=== PATIENT | male | born 1965 | race Caucasian/White ===

== ENCOUNTER → 2016-08-04 | Outpatient (CLI) | payer OTHER, MEDICAID | LOC: BHFA 14:45 | PROVIDERS: ATTEND Internal Medicine Cardiovascular Disease | DX: I25.10 Atherosclerotic heart disease of native coronary artery without angina pectoris (principal); I10 Essential (primary) hypertension; E78.00 Pure hypercholesterolemia, unspecified ==

== ENCOUNTER → 2017-02-15 | Outpatient (CLI) | payer OTHER, MEDICAID | LOC: BHFA 10:45 | PROVIDERS: ATTEND Internal Medicine Cardiovascular Disease | DX: R07.9 Chest pain, unspecified (principal); R00.2 Palpitations; I25.10 Atherosclerotic heart disease of native coronary artery without angina pectoris; I10 Essential (primary) hypertension; E78.00 Pure hypercholesterolemia, unspecified; R00.0 Tachycardia, unspecified ==

== ENCOUNTER → 2017-02-20 | Outpatient (CLI) | payer OTHER, MEDICAID | LOC: BHFA 14:00 | PROVIDERS: ATTEND Internal Medicine Cardiovascular Disease | DX: R00.2 Palpitations (principal) ==

== ENCOUNTER → 2017-03-14 | Outpatient (CLI) | payer OTHER, MEDICAID ==
[~2017-03-14] MED LIST: REGADENOSON 0.4 MG/5 ML SYR IVP ONE
--- NOTE | 2017-03-14 13:03 | CPR ---
[f rep st] NONINVASIVE CARDIAC PROCEDURE REPORT PROCEDURE PERFORMED: Nuclear treadmill stress test. REASON FOR TEST: Palpitations. FINDINGS: Resting EKG shows a regular sinus rhythm. Resting heart rate 76, resting blood pressure 1 28/86, oxygen saturation 94%. EXERCISE PORTION: He was exercised according to the Buster protocol for a total of 7 minutes and 30 s econds. He reached maximal predicted heart rate of 173, his blood pressure. 164/78, he had no chest pain. RECOVERY: He spontaneously recovered, noting occasional PVCs during the recovery period. Resting he art rate 97, resting recovery blood pressure 146/82. He remained asymptomatic, with the exception of feeling palpitations when he had the PVCs. At this time, he is stable for nuclear imaging. This is a [facility] outpatient stress test. /[id number]/MODL
== END ==
LOC: FIMAGING 09:17
PROVIDERS: ATTEND Physician Assistant Medical
DX: R00.2 Palpitations (principal); R07.9 Chest pain, unspecified
CPT/HCPCS: 78452; 93017; A9500; J2785

== ENCOUNTER → 2017-04-03 | Outpatient (CLI) | payer OTHER, MEDICAID | LOC: BHFA 10:45 | PROVIDERS: ATTEND Internal Medicine Cardiovascular Disease | DX: I25.10 Atherosclerotic heart disease of native coronary artery without angina pectoris (principal); I10 Essential (primary) hypertension; I42.9 Cardiomyopathy, unspecified ==

== ENCOUNTER 2017-08-04 11:06 | Emergency (ER) | payer OTHER, MEDICAID ==
--- NOTE | 2017-08-04 11:17 | CPEKG ---
Heart Rate: 62 RR Interval: 968 P-R Interval: 188 QRSD Interval: 86 QT Interval: 388 QTC Interval: 394 P [place]: 48 QRS [place]: 7 T Wave [place]: 26 EKG Severity - NORMAL ECG - EKG Impression: SINUS RHYTHM Electronically Signed By: Morro Chopra 04-Aug-2017 14:36:21
[2017-08-04 11:22] VITALS: RESP 16
--- NOTE | 2017-08-04 11:42 | EDPHY ---
H & P Time Seen by Provider: 08/04/17 11:40 HPI/ROS: Chief complaint. Chest pain HPI. 52-year-old male presents emergency department with chest discomfort. He had palpitations for the last 2 months. He has had somewhat of an elevated blood pressure. This morning he walked to an appointment with his mental health therapist and wall talking at about 10 15 he developed retrosternal burning that radiated to his throat. He subsequently is hands and forehead became sweaty. He had increased pain with deep breathing but though really no shortness of breath. He still has slight lingering anterior chest discomfort. His discomfort lasted acutely about 5 min. He has had similar symptoms. The slightly ROS Constitutional. no fever/chills, no weakness Eyes. no problems with vision ENT. no sore throat, no nasal drainage Cardiovascular. Chest pain Respiratory. Pain with deep breathing Abdominal. no abdominal pain, no nausea/vomiting, no diarrhea . no problems urinating MS. no calf pain/swelling, no neck/back pain, no joint pain Skin. no rash Lymph. no swollen glands Neuro. no headache, no dizziness, no difficulty walking or with speech Past Medical/Surgical History: Past medical history is significant for bipolar, depression, gout, cardiomyopathy. Heart catheterization in 2013 showed minimal coronary artery disease. Family history positive for early coronary artery disease in his uncles. His father of an MS at age 65 Social History: Single, nonsmoker, no alcohol Smoking Status: Former smoker Physical Exam: General Appearance: Alert pleasant well-developed male mild distress vital signs are stable Eyes: Pupils equal and round no pallor or injection. ENT, Mouth: Mucous membranes are moist. Respiratory: There are no retractions, lungs are clear to auscultation. Cardiovascular: Regular rate and rhythm. Gastrointestinal: Abdomen is soft and nontender, no masses, bowel sounds normal. Neurological: Awake and alert, sensory and motor exams grossly normal. Skin: Warm and dry, no rashes. Musculoskeletal: Neck is supple nontender. Extremities symmetrical, full range of motion. Psychiatric: Patient is oriented X 3, there is no agitation. Constitutional: Initial Vital Signs Temperature (C) 36.8 C 08/04/17 11:20 Heart Rate 67 08/04/17 11:20 Respiratory Rate 16 08/04/17 11:20 Blood Pressure 140/87 H 08/04/17 11:20 O2 Sat (%) 96 08/04/17 11:20 O2 Delivery Mode Room Air Allergies/Adverse Reactions: iodine [Iodine] Allergy (Verified 03/06/14 17:48) Home Medications: Medication Instructions Recorded clonazePAM [Klonopin (*)] 0.5 mg PO BID PRN 03/06/14 Aspirin 81 mg PO DAILY #30 tablet 03/07/14 Cardizem Cd 08/29/15 Lovastatin 08/29/15 Lisinopril 08/04/17 Medical Decision Making - Diagnostics EKG Interpretation: EKG interpreted by me shows normal sinus rhythm normal interval and axis. QRS is normal there is no significant ST elevation or depression. No arrhythmia. The rate is 62 Imaging Results: Imaging Impressions Chest X-Ray 08/04/17 12:26 IMPRESSION: No evidence for acute cardiopulmonary abnormality. Procedures: IV normal saline, monitor ED Course/Re-evaluation: Re-evaluation at 1:45 p.m. Patient is stable. He has no symptoms. He and I discussed imaging lab EKG findings. We discussed treatment plan and recommendation for repeat troponin at 2:15 p.m. Which will be the 4 hr sophie after his symptoms. He expresses understanding and agreement 3:10 p.m. 2nd troponin is normal. Patient is re-evaluated. He has been here 4 hr with no further symptoms. Did get relief from his GI cocktail. Again I have reviewed his pre IR heart catheterization and he really does not have significant coronary artery disease. Patient and I discussed laboratory evaluation, treatment plan including criteria for return importance of follow-up further evaluation. He expresses understanding and agreement Differential Diagnosis: This may well have been GERD. He had retrosternal burning pain that went up to his throat. He has a normal cardiac workup including serial troponins. I have also considered acute coronary syndrome, pneumonia. - Data Points Laboratory Results: Laboratory Results 08/04/17 11:06 08/04/17 11:06 08/04/17 08/04/17 08/04/17 14:17 11:06 11:06 WBC RBC Hgb Hct MCV MCH MCHC RDW Plt Count MPV Neut % (Auto) Lymph % (Auto) Wise % (Auto) Eos % (Auto) Baso % (Auto) Nucleat RBC Rel Count Absolute Neuts (auto) Absolute Lymphs (auto) Absolute Monos (auto) Absolute Eos (auto) Absolute Basos (auto) Absolute Nucleated RBC Immature Gran % Immature Gran # D-Dimer < 0.27 ug/mLFEU ug/mLFEU (0.00-0.50) Sodium 140 mEq/L mEq/L (135-145) Potassium 4.4 mEq/L mEq/L (3.5-5.2) Chloride 104 mEq/L mEq/L (97-110) Carbon Dioxide 25 mEq/l mEq/l (22-31) Anion Gap 11 mEq/L mEq/L (8-16) BUN 10 mg/dL mg/dL (7-23) Creatinine 0.9 mg/dL mg/dL (0.7-1.3) Estimated GFR > 60 Glucose 92 mg/dL mg/dL (70-100) Calcium 9.4 mg/dL mg/dL (8.5-10.4) Troponin I < 0.012 ng/mL ng/mL < 0.012 ng/mL ng/mL (0.000-0.034) (0.000-0.034) 08/04/17 11:06 WBC 4.30 10^3/uL 10^3/uL (3.80-9.50) RBC 4.38 10^6/uL L 10^6/uL (4.40-6.38) Hgb 14.5 g/dL g/dL (13.7-17.5) Hct 43.7 % % (40.0-51.0) MCV 99.8 fL fL (81.5-99.8) MCH 33.1 pg pg (27.9-34.1) MCHC 33.2 g/dL g/dL (32.4-36.7) RDW 13.4 % % (11.5-15.2) Plt Count 186 10^3/uL 10^3/uL (150-400) MPV 9.7 fL fL (8.7-11.7) Neut % (Auto) 43.2 % % (39.3-74.2) Lymph % (Auto) 40.7 % % (15.0-45.0) Wise % (Auto) 11.9 % % (4.5-13.0) Eos % (Auto) 2.3 % % (0.6-7.6) Baso % (Auto) 1.2 % % (0.3-1.7) Nucleat RBC Rel Count 0.0 % % (0.0-0.2) Absolute Neuts (auto) 1.86 10^3/uL 10^3/uL (1.70-6.50) Absolute Lymphs (auto) 1.75 10^3/uL 10^3/uL (1.00-3.00) Absolute Monos (auto) 0.51 10^3/uL 10^3/uL (0.30-0.80) Absolute Eos (auto) 0.10 10^3/uL 10^3/uL (0.03-0.40) Absolute Basos (auto) 0.05 10^3/uL 10^3/uL (0.02-0.10) Absolute Nucleated RBC 0.00 10^3/uL 10^3/uL (0-0.01) Immature Gran % 0.7 % % (0.0-1.1) Immature Gran # 0.03 10^3/uL 10^3/uL (0.00-0.10) D-Dimer Sodium Potassium Chloride Carbon Dioxide Anion Gap BUN Creatinine Estimated GFR Glucose Calcium Troponin I Medications Given: Discontinued Medications Al Hydroxide/Mg Hydroxide (Maalox Susp) 30 ml PO ONCE ONE Stop: 08/04/17 12:28 Last Admin: 08/04/17 12:54 Dose: 30 ml Sodium Chloride (Ns) 1,000 mls @ 0 mls/hr IV EDNOW ONE; Wide Open PRN Reason: Protocol Stop: 08/04/17 13:55 Last Admin: 08/04/17 14:16 Dose: 1,000 mls Lidocaine (Lidocaine 2% Viscous) 15 ml PO ONCE ONE Stop: 08/04/17 12:28 Last Admin: 08/04/17 12:54 Dose: 15 ml Departure - Departure Disposition: Home, Routine, Self-Care Clinical Impression: Chest pain Qualifiers: Chest pain type: unspecified Qualified Code(s): R07.9 - Chest pain, unspecified Condition: Good Instructions: Chest Pain (ED), Gastroesophageal Reflux Disease (ED) Additional Instructions: Return for worsening chest discomfort or trouble breathing. Consider Prilosec as prescribed from the grocery store as your symptoms may well have been reflux. Keep her follow-up appoint with Gastroenterology. Follow up with [facility] for worsening or recurring chest discomfort Referrals: Patient,NotPresent [Unknown] - As per Instructions Jose Manuel Piper MD [Medical Doctor] - 2-3 days, if not improved
[2017-08-04 11:46] LABS: PLATELET COUNT 186 10^3/uL (150-400)
[2017-08-04] MEDS ORDERED: MAG HYDROX/AL HYDROX/SIMETH 30 ML UDCUP PO ONE (12:27)
[2017-08-04] MEDS ORDERED: LIDOCAINE 2% VISCOUS 15 ML UDCUP PO ONE (12:27)
[2017-08-04] MEDS ORDERED: NS 1,000 ML IV ONE (13:54)
[2017-08-04 14:15] VITALS: O2SAT 94
[2017-08-04 15:50] VITALS: BP 119/85; PULSE 64; TEMP 98.6
== END 2017-08-04 15:48 | disposition home or self-care (01) ==
LOC: EDBD → EDUNIT#
DX: R07.9 Chest pain, unspecified (principal); I25.10 Atherosclerotic heart disease of native coronary artery without angina pectoris; E86.9 Volume depletion, unspecified; Z79.82 Long term (current) use of aspirin; Z87.891 Personal history of nicotine dependence

== ENCOUNTER → 2017-08-18 | Outpatient (CLI) | payer OTHER, MEDICAID | LOC: FCPNEURO 21:30 | PROVIDERS: ATTEND Internal Medicine Sleep Medicine | DX: G47.61 Periodic limb movement disorder (principal); G47.36 Sleep related hypoventilation in conditions classified elsewhere ==

== ENCOUNTER 2017-09-13 07:26 | Day surgery (SDC) | payer OTHER, MEDICAID ==
[2017-09-13] MEDS ORDERED: LIDOCAINE 1% 2 ML INJ ID PRN (08:25)
[2017-09-13] MEDS ORDERED: LR 1,000 ML IV ONE (08:25)
--- NOTE | 2017-09-13 08:58 | PDGENHP ---
History & Physical Chief Complaint: screening History of Present Illness: screenig, fhx uncle > 60 with polyps Pertinent Past, Social, Family History: sober for 2 months. tobacco quit 2011. fhx uncle polyps Relevant Physical Exam: a+ox3. cta. s1s2, rrr. +BS, soft nt Cardiorespiratory Assessment: class 2
--- NOTE | 2017-09-13 08:59 | PDANEPAE ---
ANE Past Medical History - Cardiovascular History Hx Hypertension: Yes Hx Arrhythmias: No Hx Chest Pain: No Hx Coronary Artery / Peripheral Vascular Disease: Yes Hx CHF / Valvular Disease: No Hx Palpitations: No Cardiovascular History Comment: heart cath 2012, cardiomyopathy, mild CAD, hyper cholesterolemia - Pulmonary History Hx COPD: No Hx Asthma/Reactive Airway Disease: No Hx Recent Upper Respiratory Infection: No Hx Oxygen in Use at Home: No Hx Sleep Apnea: Yes Sleep Apnea Screening Result - Last Documented: Positive Pulmonary History Comment: currently undergoing Sleep study- will see for high 80's pulse ox while sleeping. Bronchitis -occ cough now. - Neurologic History Hx Cerebrovascular Accident: No Hx Seizures: No Hx Dementia: No Neurologic History Comment: bipolar 1-well managed w/Latuda and klonopin - Endocrine History Hx Diabetes: No - Renal History Hx Renal Disorders: No Renal History Comment: nocturia - Liver History Hx Hepatic Disorders: No - Neurological & Psychiatric Hx Hx Neurological and Psychiatric Disorders: No Neurological / Psychiatric History Comment: bipolar 1- well managed w/Latuda and Klonopin. - Cancer History Hx Cancer: No - Congenital Disorder History Hx Congenital Disorders: No - GI History Hx Gastrointestinal Disorders: Yes Gastrointestinal History Comment: dx gallstones ~ 2007. abd pain -generalized. - Other Health History Other Health History: sleep problems- w/ staying asleep -uses THC. - Chronic Pain History Chronic Pain: No - Surgical History Prior Surgeries: L wrist microsurgery age 18 ANE Review of Systems Review of Systems: - Exercise capacity METS (RN): 6 METS ANE Patient History - Allergies Allergies/Adverse Reactions: iodine [Iodine] Allergy (Verified 08/28/17 10:09) Other-Enter Comments - Home Medications Home Medications: clonazePAM [Klonopin (*)] 0.5 mg PO BID PRN 03/06/14 [Last Taken 09/12/17 15:00] Cardizem Cd 08/29/15 [Last Taken 09/12/17 09:00] Lovastatin 08/29/15 [Last Taken 09/11/17 21:00] Lisinopril 08/04/17 [Last Taken 09/12/17 09:00 10 mg] Latuda 08/28/17 [Last Taken 09/11/17] - NPO status NPO Since - Liquids (Date): 09/13/17 NPO Since - Liquids (Time): 05:30 NPO Since - Solids (Date): 09/12/17 NPO Since - Solids (Time): 05:45 - Smoking Hx Smoking Status: Former smoker ANE Labs/Vital Signs - Vital Signs Blood Pressure: 134/87 Heart Rate: 92 Respiratory Rate: 16 O2 Sat (%): 94 Height: 187.96 cm Weight: 98.43 kg ANE Physical Exam - Airway Neck exam: FROM Mallampati Score: Class 1 Mouth exam: poor dentition - Pulmonary Pulmonary: no respiratory distress, no rales or rhonchi, clear to auscultation - Cardiovascular Cardiovascular: regular rate and rhythym, no murmur, rub, or gallop - ASA Status ASA Status: III ANE Anesthesia Plan Anesthesia Plan: MAC
[2017-09-13] MEDS ORDERED: MIDAZOLAM 2 MG/2 ML VIAL ONE (09:06)
[2017-09-13] MEDS ORDERED: PROPOFOL/EMULSION 500 MG/50 ML BOTTLE IV ONE (09:07)
[2017-09-13] MEDS ORDERED: ALBUTEROL 3 ML DEYVIAL IH PRN (09:32)
[2017-09-13] MEDS ORDERED: LR 500 ML IV PRN (09:32)
[2017-09-13] MEDS ORDERED: ONDANSETRON 4 MG/2 ML VIAL IVP PRN (09:32)
[2017-09-13] MEDS ORDERED: NALOXONE HCL 0.4 MG/ML INJ IVP PRN (09:32)
[2017-09-13] MEDS ORDERED: DIAZEPAM 5 MG/ML 1 ML SYR IVP PRN (09:32)
[2017-09-13] MEDS ORDERED: fentaNYL 100 MCG/2 ML INJ IVP PRN (09:32)
--- NOTE | 2017-09-13 09:45 | GIREPORT ---
[facility] Surgical Services - Endoscopy Department Patient Name: Emanuel Clay Procedure Date: 09/13/2017 9:17 AM Patient Type: Outpatient Attending MD/ ER Physician: Todd Cunningham Procedure: Colonoscopy Indications: Screening for colorectal malignant neoplasm Providers: Ja Back MD Medicines: Total IV Anesthesia (TIVA) = IV general Complications: No immediate complications. Estimated blood loss: Minimal. Description of Procedure: After obtaining informed consent, the scope was passed under direct vis ion. Throughout the procedure, the patient's blood pressure, pulse, and oxyg en saturations were monitored continuously. The Colonoscope with irrigatio n channel was introduced through the anus and advanced to the terminal il eum, with identification of the appendiceal orifice and IC valve. The colono scopy was performed without difficulty. The patient tolerated the procedure w ell. The quality of the bowel preparation was good. Findings: The digital rectal exam was normal. The terminal ileum appeared normal. A 3 mm polyp was found in the sigmoid colon. The polyp was semi-sessile . The polyp was removed with a piecemeal technique using a cold biopsy forcep s. Resection and retrieval were complete. Estimated blood loss was minimal . Two semi-sessile polyps were found in the recto-sigmoid colon. The poly ps were 4 to 8 mm in size. These polyps were removed with a cold snare. Resection and retrieval were complete. Estimated blood loss was minimal . Three sessile polyps were found in the recto-sigmoid colon. The polyps were 2 to 3 mm in size. These polyps were removed with a piecemeal technique using a cold biopsy forceps. Resection and retrieval were complete. Estimated blood loss was minimal. The exam was otherwise without abnormality. Estimated Blood Loss: Estimated blood loss was minimal. Post Op Diagnosis: - The examined portion of the ileum was normal. - One 3 mm polyp in the sigmoid colon, removed piecemeal using a cold b iopsy forceps. Resected and retrieved. - Two 4 to 8 mm polyps at the recto-sigmoid colon, removed with a cold snare. Resected and retrieved. - Three 2 to 3 mm polyps at the recto-sigmoid colon, removed piecemeal using a cold biopsy forceps. Resected and retrieved. - The examination was otherwise normal. Recommendation: - Await pathology results. - My office will call with the pathology result with 5-7 days. If you h ave not heard from my office by 05-25, do not assume the pathology is carina l, please call [phone] to get the pathology reults. - Repeat colonoscopy in 5 years for surveillance based on pathology res ults. - Resume previous diet. - Patient has a contact number available for emergencies. The signs and symptoms of potential delayed complications were discussed with the pat ient. Return to normal activities tomorrow. Written discharge instructions we re provided to the patient. - Continue present medications. - Avoid Aspirin and NSAID's for 7-10 days except as used for cardic or stroke prevention. - Discharge patient to home (ambulatory). - Return to primary care physician as previously scheduled. - Thank you for allowing me to help in your patient's care. Do not hesi rosa to call with any questions. Attending Participation: I personally performed the entire procedure. Wong Peres M.D Ja Back MD 09/13/2017 9:45:11 AM This report has been signed electronicallyMathew MD Wong Number of Addenda: 0 Note Initiated On: 09/13/2017 9:17 AM [email or web address]
[2017-09-13 10:07] VITALS: TEMP 97.7
[2017-09-13 10:40] VITALS: BP 134/85; PULSE 59; RESP 15; O2SAT 95
--- NOTE | 2017-09-13 10:49 | POSTANESTH ---
Post Anesthetic Evaluation Cardiovascular Status: Normal, Stable Respiratory Status: Normal, Stable Level of Consciousness/Mental Status: Can Participate in Eval Pain Control: Adequate, Prn Tx Ordered Nausea/Vomiting Control: Adequate, Prn Tx Ordered Complications Possibly Related to Anesthesia: None Noted
== END 2017-09-13 10:51 | disposition home or self-care (01) ==
LOC: FSGY 07:26
PROVIDERS: ATTEND Internal Medicine Gastroenterology
PROC: 0DBP8ZZ Excision of Rectum, Via Natural or Artificial Opening Endoscopic (ICD-10-PCS; principal; 2017-09-13 09:00)
PROC: 0DBN8ZZ Excision of Sigmoid Colon, Via Natural or Artificial Opening Endoscopic (ICD-10-PCS; principal; 2017-09-13 09:00)
DX: Z12.11 Encounter for screening for malignant neoplasm of colon (principal); D12.7 Benign neoplasm of rectosigmoid junction; D12.5 Benign neoplasm of sigmoid colon; E78.00 Pure hypercholesterolemia, unspecified; I25.10 Atherosclerotic heart disease of native coronary artery without angina pectoris
CPT/HCPCS: J2250; J2704

== ENCOUNTER 2017-10-16 11:59 | Emergency (ER) | payer OTHER ==
--- NOTE | 2017-10-16 13:16 | EDPHY ---
H & P Stated Complaint: Feels diaphoretic, numb left hand, constipation, abdo pain. Time Seen by Provider: 10/16/17 12:56 HPI/ROS: CHIEF COMPLAINT: Multiple complaints HISTORY OF PRESENT ILLNESS: 52-year-old male with bipolar disorder and alcoholism presents with multiple complaints. He feels that he has been poisoned by something, probably alcohol. He complains intermittent abdominal pain in the left upper quadrant and right lower quadrant for the past couple weeks. The pain is mild and is associated with no bowel movement for the last week. Recent colonoscopy was unremarkable. No nausea vomiting or fever. He also complains of an intermittent headache and numbness of all his extremities that occurred a few days ago. The numbness was transient and resolved spontaneously. Concerned about anemia. REVIEW OF SYSTEMS: complete 10 point ROS negative except at noted in the HPI - Personal History Current Tetanus Diphtheria and Acellular Pertussis (TDAP): Yes - Medical/Surgical History Hx Asthma: No Hx Chronic Respiratory Disease: No Hx Diabetes: No Hx Cardiac Disease: Yes Hx Renal Disease: No Hx Cirrhosis: No Hx Alcoholism: Yes Hx HIV/AIDS: No Hx Splenectomy or Spleen Trauma: No Other PMH: Bipolar, DEPRESSION, GOUT, CAD - Social History Smoking Status: Former smoker - Physical Exam Exam: General Appearance: Alert, well-appearing Eyes: Pupils equal and round, no conjunctival pallor or injection ENT, Mouth: Mucous membranes moist Neck: Normal inspection Respiratory: Lungs are clear to auscultation Cardiovascular: Regular rate and rhythm Gastrointestinal: Abdomen is soft, mild right upper quadrant tenderness Neurological: Alert, oriented x3, cranial nerves II through XII intact, motor 5 /5, sensory intact to light touch, normal gait. Skin: Warm and dry Extremities: Normal inspection Psychiatric: Mood and affect normal Constitutional: Initial Vital Signs Temperature (C) 36.6 C 10/16/17 12:06 Heart Rate 86 10/16/17 12:06 Respiratory Rate 18 10/16/17 12:06 Blood Pressure 145/85 H 10/16/17 12:06 O2 Sat (%) 96 10/16/17 12:06 O2 Delivery Mode Room Air Allergies/Adverse Reactions: iodine [Iodine] Allergy (Verified 08/28/17 10:09) Other-Enter Comments Home Medications: Medication Instructions Recorded clonazePAM [Klonopin (*)] 0.5 mg PO BID PRN 03/06/14 Aspirin 81 mg PO DAILY #30 tablet 03/07/14 Cardizem Cd 08/29/15 Lovastatin 08/29/15 Lisinopril 08/04/17 Medical Decision Making ED Course/Re-evaluation: This patient presents with multiple complaints. He is well-appearing with normal vital signs and normal physical exam. Laboratory studies ordered and are unremarkable. The patient was reassured. He was instructed follow up with his primary care physician. - Data Points Laboratory Results: Laboratory Results 10/16/17 12:47 10/16/17 12:47 10/16/17 10/16/17 12:47 12:47 WBC 5.48 10^3/uL 10^3/uL (3.80-9.50) RBC 4.81 10^6/uL 10^6/uL (4.40-6.38) Hgb 15.6 g/dL g/dL (13.7-17.5) Hct 46.5 % % (40.0-51.0) MCV 96.7 fL fL (81.5-99.8) MCH 32.4 pg pg (27.9-34.1) MCHC 33.5 g/dL g/dL (32.4-36.7) RDW 11.9 % % (11.5-15.2) Plt Count 237 10^3/uL 10^3/uL (150-400) MPV 10.0 fL fL (8.7-11.7) Neut % (Auto) 58.0 % % (39.3-74.2) Lymph % (Auto) 28.6 % % (15.0-45.0) [place] % (Auto) 9.9 % % (4.5-13.0) Eos % (Auto) 2.2 % % (0.6-7.6) Baso % (Auto) 0.9 % % (0.3-1.7) Nucleat RBC Rel Count 0.0 % % (0.0-0.2) Absolute Neuts (auto) 3.18 10^3/uL 10^3/uL (1.70-6.50) Absolute Lymphs (auto) 1.57 10^3/uL 10^3/uL (1.00-3.00) Absolute Monos (auto) 0.54 10^3/uL 10^3/uL (0.30-0.80) Absolute Eos (auto) 0.12 10^3/uL 10^3/uL (0.03-0.40) Absolute Basos (auto) 0.05 10^3/uL 10^3/uL (0.02-0.10) Absolute Nucleated RBC 0.00 10^3/uL 10^3/uL (0-0.01) Immature Gran % 0.4 % % (0.0-1.1) Immature Gran # 0.02 10^3/uL 10^3/uL (0.00-0.10) Sodium 144 mEq/L mEq/L (135-145) Potassium 4.4 mEq/L mEq/L (3.5-5.2) Chloride 103 mEq/L mEq/L (97-110) Carbon Dioxide 28 mEq/l mEq/l (22-31) Anion Gap 13 mEq/L mEq/L (8-16) BUN 12 mg/dL mg/dL (7-23) Creatinine 0.9 mg/dL mg/dL (0.7-1.3) Estimated GFR > 60 Glucose 78 mg/dL mg/dL (70-100) Calcium 9.3 mg/dL mg/dL (8.5-10.4) Total Bilirubin 0.7 mg/dL mg/dL (0.1-1.4) Conjugated Bilirubin 0.5 mg/dL mg/dL (0.0-0.5) Unconjugated Bilirubin 0.2 mg/dL mg/dL (0.0-1.1) AST 27 IU/L IU/L (17-59) ALT 28 IU/L IU/L (21-72) Alkaline Phosphatase 74 IU/L IU/L (38-126) Total Protein 8.0 g/dL g/dL (6.3-8.2) Albumin 4.6 g/dL g/dL (3.5-5.0) Lipase 74 IU/L IU/L (23-300) Medications Given: Discontinued Medications Magnesium Citrate (Magnesium Citrate) 300 ml PO EDNOW ONE Stop: 10/16/17 13:35 Last Admin: 10/16/17 13:41 Dose: 1 btl Departure - Departure Disposition: Home, Routine, Self-Care Clinical Impression: Abdominal pain Constipation Qualifiers: Constipation type: slow transit constipation Qualified Code(s): K59.01 - Slow transit constipation Condition: Good Instructions: Magnesium Citrate (By mouth), Constipation (ED) Additional Instructions: Your blood tests are normal today. Your not anemic and your liver tests are normal. Sometimes we are unable to diagnose an obvious cause of abdominal pain in the Emergency Department. Based upon our evaluation today, we see no obvious explanation for your pain. Because more serious conditions can be difficult to diagnose early in the course of their presentation, we ask that you return to the Emergency Department in 12-24 hours for a recheck if you are still having pain. This is necessary to exclude the development of a more serious condition such as appendicitis or other intra-abdominal emergency. In the event your pain markedly increases before that time or you develop intractable vomiting or fever return to the Emergency Department immediately. Referrals: Maru Hayes MD [Primary Care Provider] - As per Instructions
[2017-10-16 13:19] LABS: PLATELET COUNT 237 10^3/uL (150-400)
[2017-10-16] MEDS ORDERED: MAGNESIUM CITRATE 300 ML BOTTLE PO ONE (13:34)
[2017-10-16 13:44] VITALS: BP 131/87
== END 2017-10-16 13:43 | disposition home or self-care (01) ==
DX: K59.01 Slow transit constipation (principal); I25.10 Atherosclerotic heart disease of native coronary artery without angina pectoris; Z79.82 Long term (current) use of aspirin; Z87.891 Personal history of nicotine dependence